=== PATIENT | female | born 1965 | race Caucasian/White ===

== ENCOUNTER → 2020-09-23 07:56 | Outpatient (BNVA) | payer OTHER, MEDICAID, SELFPAY | PROVIDERS: PCP Nurse Practitioner Family; Visit Provider Psychiatry & Neurology Neurology | DX: M79.622 Pain in left upper arm (principal); G56.22 Lesion of ulnar nerve, left upper limb | CPT/HCPCS: 95886; 95908 ==

== ENCOUNTER → 2020-10-18 13:59 | Outpatient (BNVA) | payer OTHER, MEDICAID, SELFPAY | PROVIDERS: PCP Nurse Practitioner Family; Referring Provider Family Medicine; Visit Provider Orthopaedic Surgery | DX: M25.512 Pain in left shoulder (principal) | CPT/HCPCS: 73030 ==

== ENCOUNTER 2022-07-28 14:48 | Outpatient (CLI) | payer OTHER, MEDICAID, SELFPAY ==
--- NOTE | 2022-07-28 14:57 | MM_ITS ---
WS: [id number] BILATERAL 3D TOMOSYNTHESIS DIGITAL DIAGNOSTIC MAMMOGRAPHY WITH CAD CLINICAL INFORMATION: RIGHTBREASTLUMP HISTORY: RIGHT breast lump COMPARISON: None. TECHNIQUE: Bilateral CC, MLO, and ML views. FINDINGS: Scattered fibroglandular densities bilaterally. Spiculated nodular focal asymmetric density approxima tely 12:00 position RIGHT breast in the area of palpable abnormality. This measures approximately 1.2 x 1.0 CM. Surrounding spiculated margins suspicious for local invasion extends out circumferentially approximately 2.5 cm from the central spiculated lesion. Ultrasound described below. LEFT breast is unremarkable. ULTRASOUND BREAST RIGHT TECHNIQUE: Ultrasound right breast focused area of concern. CLINICAL INFORMATION: RIGHTBREASTLUMP FINDINGS: Ultrasound RIGHT breast 12:00 position 5 cm from the nipple. This is in the area of palpable abnormal ity. There is an ill-defined densely shadowing hypoechoic mass measuring approximately 1.1 x 1.1 x 0. 8 cm. Findings are highly suspicious for neoplasm and recommend further evaluation with ultrasound-gu ided biopsy. MM/[place] [id number] IMPRESSION: BI-RADS: 5-Highly Suggestive of Malignancy FOLLOW UP: US Guided Biopsy Recommended
--- NOTE | 2022-07-28 15:31 | US_ITS ---
WS: [id number] BILATERAL 3D TOMOSYNTHESIS DIGITAL DIAGNOSTIC MAMMOGRAPHY WITH CAD CLINICAL INFORMATION: RIGHTBREASTLUMP HISTORY: RIGHT breast lump COMPARISON: None. TECHNIQUE: Bilateral CC, MLO, and ML views. FINDINGS: Scattered fibroglandular densities bilaterally. Spiculated nodular focal asymmetric density approxima tely 12:00 position RIGHT breast in the area of palpable abnormality. This measures approximately 1.2 x 1.0 CM. Surrounding spiculated margins suspicious for local invasion extends out circumferentially approximately 2.5 cm from the central spiculated lesion. Ultrasound described below. LEFT breast is unremarkable. ULTRASOUND BREAST RIGHT TECHNIQUE: Ultrasound right breast focused area of concern. CLINICAL INFORMATION: RIGHTBREASTLUMP FINDINGS: Ultrasound RIGHT breast 12:00 position 5 cm from the nipple. This is in the area of palpable abnormal ity. There is an ill-defined densely shadowing hypoechoic mass measuring approximately 1.1 x 1.1 x 0. 8 cm. Findings are highly suspicious for neoplasm and recommend further evaluation with ultrasound-gu ided biopsy. US/US breast RT limited* [id number] IMPRESSION: BI-RADS: 5-Highly Suggestive of Malignancy FOLLOW UP: US Guided Biopsy Recommended
== END 2022-07-28 14:49 | disposition home or self-care (01) ==
PROVIDERS: PCP Nurse Practitioner Family; Visit Provider Nurse Practitioner Family
DX: Z12.31 Encounter for screening mammogram for malignant neoplasm of breast (principal)
CPT/HCPCS: 76642; 77062; G0279

== ENCOUNTER 2022-08-25 08:09 | Outpatient (CLI) | payer OTHER, MEDICAID, SELFPAY ==
--- NOTE | 2022-08-25 08:21 | US_ITS ---
WS: [id number] ULTRASOUND-GUIDED RIGHT BREAST BIOPSY CLINICAL INFORMATION: ABNORMAL MAMMOGRAM OF R BREAST COMPARISON: July 28, 2022 FINDINGS: The procedure including risks, benefits, and complications were discussed with the patient who agreed to proceed. Using sterile technique patient was prepped and draped in the usual sterile fashion. Aft er 1% lidocaine utilizing real-time ultrasound guidance 5 14-gauge cores were obtained of the RIGHT b reast lesion at the 12 o'clock position 5 cm from the nipple. Subsequently a titanium clip was placed in the biopsy cavity. No immediate complications. PATHOLOGY DEMONSTRATES A. 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 - Ramirez Mathis grade 3 (score 8). - Breast prognostic profile has been performed and will be reported separately. US/[place] [id number] IMPRESSION: 1. Uncomplicated ultrasound-guided RIGHT breast biopsy. 2. The pathology demonstrates INVASIVE CARCINOMA with mixed Ductal and lobular features 3. Breast cancer prognostic profile pending. BI-RADS: 6-Known Biopsy-Proven Malignancy FOLLOW UP: Surgical Biopsy Recommended RECOMMEND BREAST SURGERY CONSULTATION
[2022-08-31 09:55] LABS: Breast Profile ER,PR,HER2,Ki-6 See Report
== END 2022-08-25 08:10 | disposition home or self-care (01) ==
LOC: RAD 08:11
PROVIDERS: PCP Nurse Practitioner Family; Visit Provider Nurse Practitioner Family
DX: C50.811 Malignant neoplasm of overlapping sites of right female breast (principal)
CPT/HCPCS: 19083; 88305; 88361; 88374

== ENCOUNTER 2022-09-14 08:02 | Oncology outpatient (recurring) (ONCR) | payer OTHER, MEDICAID, SELFPAY | END 2022-10-08 23:59 | disposition home or self-care (01) | LOC: ONCMED 08:02 | PROVIDERS: PCP Nurse Practitioner Family; Visit Provider Internal Medicine Hematology & Oncology | DX: Z53.9 Procedure and treatment not carried out, unspecified reason (principal) ==

== ENCOUNTER 2023-02-03 09:30 | Outpatient (CLI) | payer OTHER, MEDICAID, SELFPAY ==
--- NOTE | 2023-02-03 09:30 | PETR_ITS ---
PROCEDURE INFORMATION: Exam: PET/CT Skull Base to Mid-thigh Exam date and time: 02/03/2023 10:06 AM Age: 57 years old Clinical indication: Right breast cancer diagnosed in July 2022. Initial oncological staging assessment; Right mastectomy; LABS AND CLINICAL REPORTS: Glucose: 114 mg/dl Treatment strategy for malignancy (PET staging): Initial Staging (PI) TECHNIQUE: Imaging protocol: Following at least four-hour fasting and following the injection of radiopharmaceutical, low dose CT images were obtained. Then, PET images were obtained. Attenuation corrected images were constructed using the CT scan. Fused images of PET and CT were reviewed. The standardized uptake values (SUV) reported below are maximum values within a region of interest, expressed in gm/ml. Exam includes orbital meatal line to mid-thigh. Radiopharmaceutical: 14.85 mCi F-18 FDG (Fluorodeoxyglucose), IV. Time of imaging post radiopharmaceutical administration: 60.8 minutes. Injection site: Left hand. COMPARISON: [place] [id number] 08/25/2022 8:59 AM FINDINGS: Brain: Visualized brain has normal physiologic uptake. Pharynx: No abnormal uptake. Larynx: No abnormal uptake. Lungs, pleura and trachea: No abnormal uptake. Heart: Normal physiologic uptake. Mediastinal space: No abnormal uptake. Liver: No abnormal uptake. Gallbladder and bile ducts: No abnormal uptake. Pancreas: No abnormal uptake. Spleen: No abnormal uptake. Mild splenomegaly, 15.4 cm (measured on sagittal images) Adrenal glands: No abnormal uptake. Kidneys and ureters: Normal physiologic uptake. Stomach and bowel: No abnormal uptake. Intraperitoneal and retroperitoneal spaces: No significant peritoneal free fluid. No free peritoneal air. Reproductive: Post hysterectomy. No ovarian or adnexal pathology. Vasculature: There is moderate calcific atherosclerosis of the abdominal aorta and iliac arteries. There is no aneurysm. Lymph nodes: See below. No FDG avid lymph nodes in the neck, chest, abdomen or pelvis. Bones/joints: No metabolically active areas. Soft tissues: Expected postoperative changes at the right mastectomy site. No evidence of locally recurrent breast cancer. A postoperative subcutaneous fluid collection has a density of 9 HU, which is consistent with a seroma. It is 13.4 x 2.1 x 9.2 cm. An FDG avid ovoid subcutaneous soft tissue lesion in the left groin is 2.0 x 1.4 x 2.0 cm (image 147). Its max SUV is 5.6. It is nonspecific. Central hypodensity suggests that it may be an abscess. Malignant lymphadenopathy is not excluded. PET/PET [facility] INITIAL [id number] IMPRESSION: 1. Recent right mastectomy with postoperative seroma. No local recurrence. 2. An FDG avid ovoid subcutaneous soft tissue lesion in the left groin is 2.0 x 1.4 x 2.0 cm. Its max SUV is 5.6. It is nonspecific and compatible with either infection or lymphadenopathy. 3. No lymphadenopathy in the neck, chest abdomen or pelvis. 4. Mild splenomegaly.
== END 2023-02-03 09:31 | disposition home or self-care (01) ==
LOC: RAD 02-05 05:45
PROVIDERS: PCP Nurse Practitioner Family; Visit Provider Internal Medicine Medical Oncology
DX: C50.911 Malignant neoplasm of unspecified site of right female breast (principal); Z90.11 Acquired absence of right breast and nipple; M96.843 Postprocedural seroma of a musculoskeletal structure following other procedure; Y83.8 Other surgical procedures as the cause of abnormal reaction of the patient, or of later complication, without mention of misadventure at the time of the procedure; R19.04 Left lower quadrant abdominal swelling, mass and lump; R16.1 Splenomegaly, not elsewhere classified
CPT/HCPCS: 78815; A9552

== ENCOUNTER 2023-02-08 10:01 | Oncology outpatient (recurring) (ONCR) | payer OTHER, MEDICAID, SELFPAY ==
[2023-01-18 10:39] LABS: Hematocrit 54.4 % (37.0-47.0); Hemoglobin 18.4 g/dL (11.5-15.3); Mean Corpuscular HGB Conc 33.8 g/dL (30.0-36.0); Mean Corpuscular Hemoglobin 29.7 pg (28.0-34.0); Mean Corpuscular Volume 87.9 fl (81-99); Mean Platelet Volume 10.1 fL (7.4-10.4); Platelet Count 238 10^3/cmm (130-400); Red Blood Count 6.19 10^6/uL (4.1-5.3); Red Cell Distribution Width 13.9 % (12.1-15.1); White Blood Count 15.5 10^3/uL (4.0-10.0)
[2023-01-18 11:04] LABS: Absolute Eosinophils 0.3 10^3/cmm (0.0-0.7); Absolute Segmented Neutrophil 7.9 10/cmm (1.6-7.1); Alanine Aminotransferase 19 U/L (0-33); Albumin Level 4.5 g/dL (3.5-5.2); Alkaline Phosphatase 80 U/L (35-105); Anion Gap 15.1 (5-19); Aspartate Amino Transferase 19 U/L (0-32); Blood Urea Nitrogen 12 mg/dL (6-20); Calcium 9.7 mg/dL (8.5-10.5); Carbon Dioxide 27 mmol/L (22-29); Chloride 101 mmol/L (98-107); Eosinophils 2 %; Estradiol 11.7 pg/mL; Follicle Stimulating Hormone 41.6 mIU/mL; Globulin 3.3 g/dL (1.3-4.6); Glomerular Filtration Rate 86.6 mL/min (90-130); Glucose 157 mg/dL (65-115); Luteinizing Hormone 31.1 mIU/mL (0.5-41.7); Lymphocytes 31 %; Lymphocytes Absolute 6.5 10^3/cmm (1.2-3.4); Monocytes Absolute 0.8 10^3/cmm (0.1-0.6); Osmolality Calculated 291 mOsm/kg (285-295); Potassium 4.1 mmol/L (3.5-5.1); Segmented Neutrophils 51 %; Slide Review Slide Review Perform; Sodium 139 mmol/L (136-145); Total Bilirubin 0.5 mg/dL (0.15-1.2); Total Cells Counted 100 (0-100); Total Protein 7.8 g/dL (6.6-8.7)
[2023-01-18 11:05] LABS: Absolute Neutrophil 7.9 10^3/cmm (1.4-6.5); Platelet Estimate Normal (Normal)
== END 2023-02-08 23:59 | disposition home or self-care (01) ==
PROVIDERS: PCP Nurse Practitioner Family; Visit Provider Internal Medicine Medical Oncology
DX: C50.911 Malignant neoplasm of unspecified site of right female breast (principal)
CPT/HCPCS: 36415; 80053; 82670; 83001; 83002; 85007; 85025

== ENCOUNTER 2023-03-02 14:23 | Outpatient (CLI) | payer OTHER, MEDICAID, SELFPAY ==
--- NOTE | 2023-03-02 14:30 | XR_ITS ---
WS: [id number] SCREENING DEXA SCAN RECCY CLINICAL INFORMATION: Breast cancer COMPARISON: None. FINDINGS: The L1-L4 bone mineral density measures 1.229 g/cm2. This corresponds to a T score score of 0.4 and Z score of 1.0. Left femoral neck bone mineral density measures 0.818 g/cm2. This corresponds to a T score of -1.5 an d Z score of -1.0. Right femoral neck bone mineral density measures 0.885 g/cm2. This corresponds to a T score -1.0of an d Z score of -0.5. Mean femoral neck bone mineral density measures 0.852 g/cm2. This corresponds to a T score of -1.2 an d Z score of -0.8. IMPRESSION: Normal bone mineralization lumbar spine. Osteopenia femoral necks. Patient's FRAX calculated 10 year probability for major osteoporotic fracture is 8.0% and osteoporoti c hip fracture is 1.4%.
== END 2023-03-02 14:24 | disposition home or self-care (01) ==
PROVIDERS: PCP Nurse Practitioner Family; Visit Provider Internal Medicine Medical Oncology
DX: Z13.820 Encounter for screening for osteoporosis (principal); C50.911 Malignant neoplasm of unspecified site of right female breast; M85.88 Other specified disorders of bone density and structure, other site
CPT/HCPCS: 77080

== ENCOUNTER 2023-03-09 09:11 | Oncology outpatient (recurring) (ONCR) | payer OTHER, MEDICAID, SELFPAY ==
--- NOTE | 2023-02-21 14:37 | N.ONRAD NP_ITS ---
Radiation Oncology New Patient Visit Patient: Nini Mccrary MR#: [id number] : 1965 Age: 57 Sex: Female Dictated by: Bean Dolan Date of Service: 02/21/2023 Referring Physician(s) : Diagnosis: Radiotherapy to date: Summary > No prior radiation therapy. Chief Complaint / History of Present Illness: Ms. Nini Mccrary, is a 57-year-old female with a strong family history of breast cancer, in her mother, at her age 57, maternal aunt and grandmother with breast cancer and ovarian cancer. As per patient, she has 'lumpy' breasts, years ago, she noted lumps in her right breast, at that time, she was evaluated by her PMD and was told, lumps may be related to her hormonal changes during her menstrual period as they were 'come and go' type and they did dissolve. And in June 2022, as per patient she again noted lump in her right breast and thought could be due to hormonal changes but this time lump in her right breast lump did not resolve, she got concerned and went to see her PMD, Bilateral mammogram was ordered and was done on July 28, 2022 which showed 1.1 x 1.1 x 0.8 cm hypoechoic mass at 12 o'clock position in her right breast, highly suspicious for neoplasm and on August 25, 2022, she underwent ultrasound-guided biopsy of right breast mass which confirmed invasive carcinoma with mixed ductal and lobular features, ER 95% positive MA 90% positive, HER2/fidencio negative. Left breast was unremarkable. 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 11/20/2022, Oncotype DX 13 01/05/2023: Underwent right mastectomy with excision of the deep axillary lymph nodes by Dr. Vinnie Stone at [facility]. Invasive ductal carcinoma, grade 2, shows extensive and possible multifocal involvement of the breast, grossly identified at 12 o'clock position, 5 cm from the nipple, 3.2 cm in the greatest dimension. Histologically similar tumor extensively involving the inferior breast, spanning an area measuring at least 10 cm. Extensive lymphatic invasion present, ER positive, MA positive, HER2 by IHC 2+, HER2 by FISH negative. 12 out of 16 lymph nodes positive with macro metastasis. Distance from invasive carcinoma to the closest margin greater than 1 cm, extranodal extension present, 2 mm or less. Stage pT3 pN3a, MX- Stage III. 01/16/2023: PET CT scan shows right mastectomy with postoperative seroma. No local recurrence. FDG avid ovoid subcutaneous soft tissue lesion in the left groin 2 x 1.4 x 2 cm with SUV of 5.6. Nonspecific and compatible with either infection or lymphadenopathy on the PET. Mild splenomegaly also noted. Current Medications: diabetic Shoes with 3 pairs of Inserts As directed by CHERY&O] duloxetine (Cymbalta) 30 mg PO DAILY empagliflozin (Jardiance) 25 mg PO DAILY fluticasone propion-salmeterol 250-50 mcg/dose (Advair Diskus) 1 inh inhalation Q12H PRN levothyroxine 100 mcg PO DAILY sitagliptin phosphate (Januvia) 100 mg PO DAILY Allergies: Albuterol Medical History: No history of collagen vascular disease. No previous radiation therapy. Surgical History: See history of present illness. Family History: Mother of breast cancer. Grandmother cancer. Father lung disease Social History: Patient is a 1 pack/day smoker and has smoked for 20 years. She drinks occasional alcohol. Current Complaints / Review of Systems: . Patient is recovering from her right mastectomy and lymph node dissection. She has follow-up scheduled with Dr. Stone February 27. Vital Signs: Performed on 02/21/2023 10:30 AM BMI - 28.122 kg/m2 (high), Height - 64.5 in, Weight - 166.4 lbs, Temperature - 98.2 f, Pulse - 84 /min, Respiration - 16 /min, O2 Sat - 96 %, Pain - 4, Fatigue - 0 and BP - 114/ 74 mm(hg). Physical Exam: Alert and oriented female appearing her stated age. No alopecia. PERRL, EOMI. Cranial nerves II through XII grossly intact. Tongue and uvula midline and mobile. Speech intact. No cervical, supraclavicular or axillar adenopathy. Lungs clear to auscultation bilaterally. Cardiovascular Ga reveals regular rhythm. Right breast is surgically absent. Surgical incision of the right chest wall and axilla are healing well without signs of infection or drainage. Left breast is intact. Abdomen soft nontender. Bowel sounds present normal active. Pelvic and rectal examinations deferred. No upper or lower extremity edema. Motor symmetrical to the upper and lower extremities. Patient amatory without assistance. Performance Status: ECOG 1 Pathology: Invasive ductal carcinoma, grade 2 with extensive and possible multifocal involvement of the breast grossly identified at the 12 o'clock position, 5 cm from the nipple, 3.2 cm in greatest dimension in the right breast. Histologically similar tumor was noted extensively involving the inferior breast spanning an area measuring at least 10 cm. Extensive lymphatic invasion was present, ER positive, MA positive, HER2 by IHC 2+, HER2 by FISH negative. 12 out of 16 lymph nodes were positive with macrometastases. Distance from invasive carcinoma to the closest margin greater than 1 cm, extranodal extension present, 2 mm or less. Lab: Imaging: See HPI Impression: Nini Mccrary is a 57-year-old female with a strong history of breast cancer. She is status post right mastectomy with stage III, pT3 pN3a, MX invasive ductal carcinoma, grade 2 with extensive multifocal involvement of the breast, extensive lymphatic invasion, ER positive, MA positive, HER2 by IHC 2+, HER2 by FISH negative. 12 of 16 lymph nodes were positive with macrometastases. Distance from invasive carcinoma to closest margin greater than 1 cm, extranodal extension present, 2 mm or less. Patient is refusing any chemotherapy. Evaluation indicates a recommendation for aromatase inhibitors or hormonal therapy. The patient indicates she is considering that option. She also has osteoporosis and may benefit from bone strengthening agents. Plan: With her locally advanced carcinoma of the right breast and 12 of 16 lymph nodes positive with macrometastases she is a candidate for postoperative radiation therapy to the right chest wall and supraclavicular area in the hope of maintaining local control. The potential risks, benefits and side effects of external beam radiation therapy were reviewed with the patient and her daughter was also present. She is aware that the risk of pathologic rib fractures is relatively low even with her history of osteoporosis. Additionally she is aware of the side effects of possible fatigue, skin irritation, and lymphedema. Patient has a follow-up appointment with Dr. Vinnie Stone at [facility] in [place] on 02/27/2023 to be cleared for radiation therapy if indicated at that time. Patient will be contacted by phone to arrange for treatment planning CT scan. Recommendation is for postoperative radiation therapy to the chest wall and supraclavicular area at 180 cGy per fraction over 28 fractions to a dose of 50.4 Sheikh followed by a boost to the mastectomy scar at 200 cGy per fraction over 5 additional fractions for a total dose of 60.4 Sheikh. Patient will also need follow-up with medical oncology to arrange for aromatase inhibitor or hormonal therapy and for discussion of possible treatment for her osteoporosis. Signed by: 02/21/2023 2:36:15 PM <<Signature on File>> Time spent with patient: 60 minutes CPT Code: CPT Code:
--- NOTE | 2023-03-07 16:24 | ONCRAD TMN_ITS ---
Radiation Oncology Weekly Treatment Management Patient: Maryuri Mccrary MR#: [id number] : 1965> Attending Physician: Kilo Guzman Date of Service: 03/07/2023 Referring Physician(s) : Diagnosis: C50.911 - Malignant neoplasm of unspecified site of right female breast, Diagnosed 03/01/2023 (Active) Radiotherapy to date: Course: ChestWall 2022, Treatment Site: Rt ChestWall, Ref. ID: [id number], Energy: 15X, Dose/Fx (cGy): 200, #Fx: , Dose Correction (cGy): 0, Total Dose (cGy): 200, Start Date: 03/07/2023, Elapsed Days: 0 ChestWall 2022, Treatment Site: [facility], Ref. ID: [id number], Energy: 15X, Dose/Fx (cGy): 200, #Fx: , Dose Correction (cGy): 0, Total Dose (cGy): 200, Start Date: 03/07/2023, Elapsed Days: 0 Reason for visit: The patient is being seen today as part of their regularly scheduled weekly on treatment visits to assess for acute toxicities from radiotherapy. Review of Systems: First day of treatment. Smoking ??? to 1 ppd. Vital Signs: Performed on 03/07/2023 1:37 PM BMI - 27.547 kg/m2 (high), Height - 64.5 in, Weight - 163 lbs, Temperature - 97.4 f, Pulse - 90 /min, Respiration - 18 /min, O2 Sat - 95 % (low), Pain - 0, Fatigue - 0 and BP - 123/ 72 mm(hg). Physical Exam: Imaging: Radiation therapy imaging related to accurate target localization (i.e. KV, MV and CBCT) was reviewed. Appropriate changes, if any, were made to ensure treatment accuracy. Plan: Continue as planned. Discussed smoking. No interest in cessation. Signed by: Kilo Guzman 03/07/2023 4:23:00 PM Telemedicine Consent Patient seen today via Telemedicine by agreement and consent of patient. Telemedicine technology used during the visit include audio and, as available, review of images. This patient encounter is appropriate and reasonable under the circumstances given the patient???s particular presentation at this time. The patient has been advised of the potential risks and limitations of this mode of treatment (including but not limited to the absence of in-person examination) and has agreed to be treated in a remote fashion in spite of them. Any and all of the patient???s/patient???s family???s questions on this issue have been answered and I have made no promises or guarantees to the patient. The patient has also been advised to contact this office for worsening conditions or problems, and seek emergency medical treatment and/or call 911 if the patient deems either necessary.
== END 2023-03-10 23:59 | disposition home or self-care (01) ==
PROVIDERS: PCP Nurse Practitioner Family; Visit Provider Radiology Radiation Oncology
DX: Z51.0 Encounter for antineoplastic radiation therapy (principal); C50.811 Malignant neoplasm of overlapping sites of right female breast; Z17.0 Estrogen receptor positive status [ER+]
CPT/HCPCS: 36415; 77290; 77295; 77300; 77334; 77387; 77412; 82306

== ENCOUNTER 2023-04-05 11:57 | Oncology outpatient (recurring) (ONCR) | payer OTHER, MEDICAID, SELFPAY ==
--- NOTE | 2023-03-12 18:02 | ONCRAD TMN_ITS ---
Radiation Oncology Weekly Treatment Management Patient: Demetra Terrazas MR#: [id number] : 1965 Attending Physician: Kilo Guzman Date of Service: 03/12/2023 Referring Physician(s) : Diagnosis: C50.911 - Malignant neoplasm of unspecified site of right female breast, Diagnosed 03/01/2023 (Active) Radiotherapy to date: Course: ChestWall 2022, Treatment Site: Rt ChestWall, Ref. ID: [id number], Energy: 15X, Dose/Fx (cGy): 200, #Fx: 4 / 25, Dose Correction (cGy): 0, Total Dose (cGy): 800, Start Date: 03/07/2023, Elapsed Days: 5 Course: ChestWall 2022, Treatment Site: [facility], Ref. ID: [id number], Energy: 15X, Dose/Fx (cGy): 200, #Fx: 4 / 25, Dose Correction (cGy): 0, Total Dose (cGy): 800, Start Date: 03/07/2023, Elapsed Days: 5 Reason for visit: The patient is being seen today as part of their regularly scheduled weekly on treatment visits to assess for acute toxicities from radiotherapy. Review of Systems: No chest wall sxs. Active at night as she is nocturnal and sleeps during the day. Still smoking 1/2 to 1 ppd. She has Vit E , diabetic skin care and Aquaphor. Vital Signs: Performed on 03/12/2023 1:59 PM BMI - 27.547 kg/m2 (high), Height - 64.5 in, Weight - 163 lbs, Temperature - 97 f, Pulse - 93 /min, Respiration - 18 /min, O2 Sat - 93 % (low), Pain - 0, Fatigue - 0 and BP - 144/ 88 mm(hg)(high/). Physical Exam: Chest wall clear. Imaging: Radiation therapy imaging related to accurate target localization (i.e. KV, MV and CBCT) was reviewed. Appropriate changes, if any, were made to ensure treatment accuracy. Plan: Good tolerance of treatment. Continue as planned. I discussed smoking cessaion. Signed by: Kilo Guzman 03/12/2023 6:01:42 PM
--- NOTE | 2023-03-20 15:46 | ONCRAD TMN_ITS ---
Radiation Oncology Weekly Treatment Management Patient: Nini Mccrary MR#: [id number] : 1965 Attending Physician: Kilo Guzman Date of Service: 03/20/2023 Referring Physician(s) : Diagnosis: C50.911 - Malignant neoplasm of unspecified site of right female breast, Diagnosed 03/01/2023 (Active) Radiotherapy to date: Course: ChestWall 2022, Treatment Site: Rt ChestWall, Ref. ID: [id number], Energy: 15X, Dose/Fx (cGy): 200, #Fx: 10 25, Dose Correction (cGy): 0, Total Dose (cGy): 2,000, Start Date: 03/07/2023, Elapsed Days: 13 ChestWall 2022, Treatment Site: [facility], Ref. ID: [id number], Energy: 15X, Dose/Fx (cGy): 200, #Fx: 25, Dose Correction (cGy): 0, Total Dose (cGy): 2,000, Start Date: 03/07/2023, Elapsed Days: 13 Reason for visit: The patient is being seen today as part of their regularly scheduled weekly on treatment visits to assess for acute toxicities from radiotherapy. Review of Systems: No issues. Eating ok. Energy ok. Still smoking. Vital Signs: Performed on 03/20/2023 1:11 PM BMI - 28.02 kg/m2 (high), Height - 64.5 in, Weight - 165.8 lbs, Temperature - 97.5 f, Pulse - 86 /min, Respiration - 16 /min, O2 Sat - 97 %, Pain - 0, Fatigue - 0 and BP - 108/ 61 mm(hg)(/low). Physical Exam: Imaging: Radiation therapy imaging related to accurate target localization (i.e. KV, MV and CBCT) was reviewed. Appropriate changes, if any, were made to ensure treatment accuracy. Plan: Good tolerance of treatment. She will add Aquaphor. Discussed smoking and need for cessation. Signed by: Kilo Guzman 03/20/2023 3:46:13 PM Telemedicine Consent Patient seen today via Telemedicine by agreement and consent of patient. Telemedicine technology used during the visit include audio and, as available, review of images. This patient encounter is appropriate and reasonable under the circumstances given the patient???s particular presentation at this time. The patient has been advised of the potential risks and limitations of this mode of treatment (including but not limited to the absence of in-person examination) and has agreed to be treated in a remote fashion in spite of them. Any and all of the patient???s/patient???s family???s questions on this issue have been answered and I have made no promises or guarantees to the patient. The patient has also been advised to contact this office for worsening conditions or problems, and seek emergency medical treatment and/or call 911 if the patient deems either necessary.
--- NOTE | 2023-03-28 13:18 | ONCRAD TMN_ITS ---
Radiation Oncology Weekly Treatment Management Patient: Nini Mccrary MR#: [id number] : 1965 Attending Physician: Kilo Guzman Date of Service: 03/27/2023 Referring Physician(s) : Diagnosis: C50.911 - Malignant neoplasm of unspecified site of right female breast, Diagnosed 03/01/2023 (Active) Radiotherapy to date: Course: ChestWall 2022, Treatment Site: Rt ChestWall, Ref. ID: [id number], Energy: 15X, Dose/Fx (cGy): 200, #Fx: 15 / 25, Dose Correction (cGy): 0, Total Dose (cGy): 3,000, Start Date: 03/07/2023, Elapsed Days: 20 Course: ChestWall 2022, Treatment Site: [facility], Ref. ID: [id number], Energy: 15X, Dose/Fx (cGy): 200, #Fx: 15 / 25, Dose Correction (cGy): 0, Total Dose (cGy): 3,000, Start Date: 03/07/2023, Elapsed Days: 20 Reason for visit: The patient is being seen today as part of their regularly scheduled weekly on treatment visits to assess for acute toxicities from radiotherapy. Review of Systems: Doing well. No symptoms. Energy ok, Eating ok. Still smoking with no plans to quit. Some arm pain treated with motrin and now better.Using Aquaphor. Vital Signs: Performed on 03/27/2023 1:28 PM BMI - 28.122 kg/m2 (high), Height - 64.5 in, Weight - 166.4 lbs, Temperature - 97.2 f, Pulse - 86 /min, Respiration - 16 /min, O2 Sat - 96 %, Pain - 0, Fatigue - 2 and BP - 138/ 79 mm(hg). Physical Exam: Imaging: Radiation therapy imaging related to accurate target localization (i.e. KV, MV and CBCT) was reviewed. Appropriate changes, if any, were made to ensure treatment accuracy. Plan: Good tolerance of treatment. Continue as planned. Signed by: Kilo Guzman 03/28/2023 1:17:36 PM Telemedicine Consent Patient seen today via Telemedicine by agreement and consent of patient. Telemedicine technology used during the visit include audio and, as available, review of images. This patient encounter is appropriate and reasonable under the circumstances given the patient???s particular presentation at this time. The patient has been advised of the potential risks and limitations of this mode of treatment (including but not limited to the absence of in-person examination) and has agreed to be treated in a remote fashion in spite of them. Any and all of the patient???s/patient???s family???s questions on this issue have been answered and I have made no promises or guarantees to the patient. The patient has also been advised to contact this office for worsening conditions or problems, and seek emergency medical treatment and/or call 911 if the patient deems either necessary.
--- NOTE | 2023-04-03 14:13 | ONCRAD TMN_ITS ---
Radiation Oncology Weekly Treatment Management Patient: Demetra Terrazas MR#: [id number] : 1965 Attending Physician: Bean Dolan Date of Service: 04/03/2023 Referring Physician(s) : Diagnosis: C50.911 - Malignant neoplasm of unspecified site of right female breast, Diagnosed 03/01/2023 (Active) Radiotherapy to date: Course: ChestWall 2022, Treatment Site: Rt ChestWall, Ref. ID: [id number], Energy: 15X, Dose/Fx (cGy): 200, #Fx: 20 / 25, Dose Correction (cGy): 0, Total Dose (cGy): 4,000, Start Date: 03/07/2023, Elapsed Days: Course: ChestWall 2022, Treatment Site: [facility], Ref. ID: [id number], Energy: 15X, Dose/Fx (cGy): 200, #Fx: 20 / 25, Dose Correction (cGy): 0, Total Dose (cGy): 4,000, Start Date: 03/07/2023, Elapsed Days: Reason for visit: The patient is being seen today as part of their regularly scheduled weekly on treatment visits to assess for acute toxicities from radiotherapy. Review of Systems: Patient complains of right chest wall skin pain rated 4 out of 10. She is using vitamin E and Aquaphor. She reports that she is sleeping well denies any excessive fatigue. Vital Signs: Performed on 04/03/2023 1:14 PM BMI - 27.547 kg/m2 (high), Height - 64.5 in, Weight - 163.0 lbs, Temperature - 97.1 f, Pulse - 88 /min, Respiration - 18 /min, O2 Sat - 96 %, Pain - 4, Fatigue - 3 and BP - 133/ 79 mm(hg). Physical Exam: Alert and oriented female appearing her stated age. Skin of the right chest wall is erythematous in the treatment field with no moist desquamation. No lymphedema of the right upper extremity or chest wall noted. Patient ambulatory without assistance. Imaging: Radiation therapy imaging related to accurate target localization (i.e. KV, MV and CBCT) was reviewed. Appropriate changes, if any, were made to ensure treatment accuracy. Plan: Bolus will be held today and will be changed to every other day. Plan to continue prescribed treatment otherwise. Signed by: Bean Dolan 04/03/2023 2:12:13 PM
== END 2023-04-05 23:59 | disposition home or self-care (01) ==
PROVIDERS: PCP Nurse Practitioner Family; Visit Provider Radiology Radiation Oncology
DX: Z51.0 Encounter for antineoplastic radiation therapy; C50.811 Malignant neoplasm of overlapping sites of right female breast; Z17.0 Estrogen receptor positive status [ER+]; C77.3 Secondary and unspecified malignant neoplasm of axilla and upper limb lymph nodes; F17.210 Nicotine dependence, cigarettes, uncomplicated
CPT/HCPCS: 77014; 77336; 77387; 77412; 77427; 99024

== ENCOUNTER 2023-04-09 07:03 | Oncology outpatient (recurring) (ONCR) | payer OTHER, MEDICAID, SELFPAY | END 2023-04-10 23:59 | disposition home or self-care (01) | LOC: ONCMED 07:07 | PROVIDERS: PCP Nurse Practitioner Family; Visit Provider Radiology Radiation Oncology | DX: Z53.9 Procedure and treatment not carried out, unspecified reason ==

== ENCOUNTER 2023-05-29 15:30 | Oncology outpatient (recurring) (ONCR) | payer OTHER, MEDICAID, SELFPAY ==
[2023-05-22 12:08] VITALS: BP 132/82; PULSE 85; RESP 16; TEMP 36.8; O2SAT 95
[2023-05-22 12:24] LABS: Basophils # 0.1 10^3/uL (0.0-0.1); Basophils % 0.5 %; Eosinophils # 0.3 10^3/uL (0.0-0.8); Eosinophils % 2.4 %; Hematocrit 50.1 % (36-47); Lymphocytes # 3.4 10^3/uL (0.8-4.8); Lymphocytes % 30.8 %; Mean Corpuscular HGB Conc 35.7 g/dL (30-55); Mean Corpuscular Hemoglobin 30.6 pg (27-33); Mean Corpuscular Volume 85.6 fl (85-98); Mean Platelet Volume 9.6 fL (7.4-10.4); Monocytes # 0.7 10^3/uL (0.2-0.9); Monocytes % 6.6 %; Neutrophils # 6.51 10^3/uL (1.8-7.7); Neutrophils % 59.3 %; Nucleated Red Blood Cells % 0 %; Platelet Count 220 10^3/cmm (157-399); Red Blood Count 5.85 10^6/uL (3.85-5.65); Red Cell Distribution Width 13.3 % (12.1-15.1); White Blood Count 10.98 10^3/uL (3.29-11.43)
[2023-05-22 12:40] LABS: Alanine Aminotransferase 14 U/L (0-33); Albumin Level 4.5 g/dL (3.5-5.2); Alkaline Phosphatase 84 U/L (35-105); Aspartate Amino Transferase 15 U/L (0-32); Blood Urea Nitrogen 10 mg/dL (6-20); Calcium 9.7 mg/dL (8.5-10.5); Carbon Dioxide 24 mmol/L (22-29); Chloride 97 mmol/L (98-107); Glomerular Filtration Rate 86.6 mL/min (90-130); Glucose 207 mg/dL (65-115); Osmolality Calculated 285 mOsm/kg (285-295); Sodium 135 mmol/L (136-145); Total Bilirubin 0.4 mg/dL (0.15-1.2); Total Protein 7.5 g/dL (6.6-8.7)
--- NOTE | 2023-05-22 13:16 | ONCRAD EPV_ITS ---
Radiation Oncology Established Patient Visit Patient: Nini Mccrary [id number] : 1965 Age: 57 Sex: Female Dictated by: Dr. Amanda Jones Date of Service: 05/22/2023 Referring Physician(s) : Diagnosis: C50.911 - Malignant neoplasm of unspecified site of right female breast, Diagnosed 03/01/2023 (Active) Radiotherapy to Date: Course: ChestWall 2022, Treatment Site: Rt ChestWall, Ref. ID: [id number] Energy: 15X, Dose/Fx (cGy): 200, #Fx: , Dose Correction (cGy): 0, Total Dose (cGy): 4,400, Start Date: 03/07/2023, End Date: 04/05/2023, Elapsed Days: 29 ChestWall 2022, Treatment Site: [facility], Ref. ID: [id number], Energy: 15X, Dose/Fx (cGy): 200, #Fx: , Dose Correction (cGy): 0, Total Dose (cGy): 4,400, Start Date: 03/07/2023, End Date: 04/05/2023, Elapsed Days: 29 Current History: Patient was recovered nicely from her treatments. Her only complaint today is that her biceps area and her forearm have become more sore. She otherwise has a good appetite. She is sleeping fairly well. Her energy level is returning Current Medications: DULoxetine HCl, empagliflozin, fluticasone-Salmeterol, levothyroxine Sodium, sITagliptin Phosphate. Allergies: Current Complaints / Review of Systems: . Vital Signs: Performed on 05/22/2023 12:21 PM BMI - 27.446 kg/m2 (high), Height - 64.5 in, Weight - 162.4 lbs, Temperature - 98.3 f, Pulse - 85 /min, Respiration - 16 /min, O2 Sat - 95 % (low), Pain - 0, Fatigue - 0 and BP - 132/ 82 mm(hg). Physical Exam: General: Alert and oriented x 3. No acute distress. HEENT: Normocephalic, atraumatic. Extraocular Movements Intact: Pupils Equal, Round, Reactive to Light: Sclerae anicteric. Chest wall: Examination of the right chest wall reveals the skin to be hyperpigmented and dry. There is no areas of moist desquamation or nodules.. LUNGS respiratory rate is regular nonlabored. HEART: Regular rate and rhythm. MUSCULOSKELETAL: No gross musculoskeletal abnormalities noted. ABDOMEN: Soft, nontender, nondistended EXTREMITIES: Examination of the right arm reveals that the hand is just mildly puffy. It is notable in that she just does not have as many wrinkles on that hand. NEUROLOGIC: Alert and oriented x 3. Gait and speech within normal limits. Performance Status: 100 Lab: None pending. Pathology: Primary, c50.911 - malignant neoplasm of unspecified site of right female breast, Diagnosed 03/01/2023 (active). Imaging: See HPI Impression: Right-sided breast cancer status post chest wall radiation Plan: At this time she is recovering nicely. She was scheduled to visit with medical oncology but she has declined that intervention. She says she is not interested in taking pills or chemotherapy. She was post to see somebody for physical therapy at [facility] but she is not heard from them and she is not interested in meeting with them. I did review with her how to do her own manual lymphatic drainage for her arm. I reviewed with her that her tenderness in her arm is most likely from trace edema. I also reviewed with her what to watch for in terms of recurrence across the chest wall. At this point she just like to take some time to recover. She has agreed to return in 6 months for evaluation or she will call if any problems should arise in the interim Signed by: 05/22/2023 1:15:02 PM <<Signature on File>> Time spent with patient: CPT Code: CPT Code:
[2023-05-29 16:19] LABS: 25 Hydroxy Vitamin D 48 ng/mL (30-100)
== END 2023-06-10 23:59 | disposition home or self-care (01) ==
PROVIDERS: Internal Medicine Medical Oncology; PCP Nurse Practitioner Family; Visit Provider Nurse Practitioner Family
DX: C50.811 Malignant neoplasm of overlapping sites of right female breast; Z17.0 Estrogen receptor positive status [ER+]; Z79.899 Other long term (current) drug therapy; Z53.9 Procedure and treatment not carried out, unspecified reason
CPT/HCPCS: 36415; 80053; 82306; 85025; 99024

== ENCOUNTER 2023-08-09 13:23 | Oncology outpatient (recurring) (ONCR) | payer OTHER, MEDICAID, SELFPAY ==
--- NOTE | 2023-08-09 14:25 | ONCRAD EPV_ITS ---
Radiation Oncology Established Patient Visit Patient: Demetra Terrazas [id number] : 1965> Age: 58> Sex: Female> Dictated by: Dr. Amanda Jones Date of Service: 08/09/2023 Referring Physician(s) : Shannon Perez nurse practitioner Diagnosis: C50.911 - Malignant neoplasm of unspecified site of right female breast, Diagnosed 03/01/2023 (Active) Radiotherapy to Date: Course: ChestWall 2022, Treatment Site: Rt ChestWall, Ref. ID: [id number], Energy: 15X, Dose/Fx (cGy): 200, #Fx: / 25, Dose Correction (cGy): 0, Total Dose Delivered (cGy): 4,400, Start Date: 03/07/2023, End Date: 04/05/2023, Elapsed Days: 29 Treatment Site: SCLV, Ref. ID: [id number], Energy: 15X, Dose/Fx (cGy): 200, #Fx: , Dose Correction (cGy): 0, Total Dose Delivered (cGy): 4,400, Start Date: 03/07/2023, End Date: 04/05/2023, Elapsed Days: 29 Current History: Patient had called earlier with difficulty with her right shoulder. She had had decrease in range of motion and it was progressively getting worse. She thought it may be due to her cancer and the fact that she had a mastectomy on the right side. She is here today to review her current symptoms. Current Medications: DULoxetine HCl, empagliflozin, fluticasone-Salmeterol, levothyroxine Sodium, sITagliptin Phosphate. Allergies: Current Complaints / Review of Systems: . Vital Signs: Performed on 08/09/2023 1:55 PM BMI - 27.547 kg/m2 (high), Height - 64.5 in, Weight - 163 lbs, Temperature - 97.3 f, Pulse - 83 /min, Respiration - 18 /min, O2 Sat - 98 %, Pain - 8, Fatigue - 0 and BP - 139/ 74 mm(hg). Physical Exam: General: Patient is in no apparent distress. She is by herself today.. HEENT: Normocephalic, atraumatic. Extraocular Movements Intact: Pupils Equal, Round, Reactive to Light: Sclerae anicteric. .. NECK: Supple without supraclavicular or jugular lymphadenopathy. LUNGS: Respiratory rate regular nonlabored. HEART: Regular rate and rhythm,. MUSCULOSKELETAL: No tenderness or percussion pain over the axial skeleton, scapulae or right shoulder ABDOMEN: Soft, nontender, nondistended without masses or organomegalyEXTREMITIES: No peripheral edema is identified. Limited motor and sensory examination are grossly intact and symmetric bilaterally. Thorax: The right chest wall is without nodules lesions or masses. NEUROLOGIC: Alert and orient x 3. Gait and speech within normal limits Right arm and shoulder: She is wearing a brace on her right forearm secondary to her carpal tunnel. On exam she does not appear to have any swelling or discoloration of the right shoulder joint. She is able to lift it anteriorly but is unable to lift more than 45 degrees laterally.. Performance Status: 90 Lab: None pending. Pathology: Primary, c50.911 - malignant neoplasm of unspecified site of right female breast, Diagnosed 03/01/2023 (active) . 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 I have recommended that since she is beginning to lose her range of motion and obviously has significant pain that we proceed with evaluation which would include an MRI of her shoulder. She is getting to the point where she is not able to push the cart at [facility]. She has difficulty feeding her animals. She does not appear to have any lymphedema but definitely has range of motion issues. Will get her set up to have her MRI and then I will call her with those results and hopefully be able to refer her to the appropriate person. If for some reason there is malignancy found in this area I will see her back in person to go over those results. Signed by: 08/09/2023 2:23:18 PM <<Signature on File>> Time spent with patient:30 CPT Code: CPT Code:
== END 2023-08-09 23:59 | disposition home or self-care (01) ==
LOC: ONCMED 13:24
PROVIDERS: PCP Nurse Practitioner Family; Visit Provider Radiology Radiation Oncology
DX: C50.811 Malignant neoplasm of overlapping sites of right female breast (principal); Z17.0 Estrogen receptor positive status [ER+]; Z79.899 Other long term (current) drug therapy
CPT/HCPCS: 99213

== ENCOUNTER 2023-08-24 09:29 | Oncology outpatient (recurring) (ONCR) | payer OTHER, MEDICAID, SELFPAY ==
[2023-08-24 09:59] LABS: Basophils % 0.4 %; Eosinophils # 0.3 10^3/uL (0.0-0.8); Eosinophils % 2.7 %; Hematocrit 49.9 % (36-47); Lymphocytes # 2.6 10^3/uL (0.8-4.8); Lymphocytes % 27.5 %; Mean Corpuscular HGB Conc 34.9 g/dL (30-55); Mean Corpuscular Hemoglobin 30.8 pg (27-33); Mean Corpuscular Volume 88.3 fl (85-98); Mean Platelet Volume 9.5 fL (7.4-10.4); Monocytes # 0.6 10^3/uL (0.2-0.9); Monocytes % 6.2 %; Neutrophils # 6.01 10^3/uL (1.8-7.7); Nucleated Red Blood Cells % 0 %; Platelet Count 184 10^3/cmm (157-399); Red Blood Count 5.65 10^6/uL (3.85-5.65); Red Cell Distribution Width 13.6 % (12.1-15.1); White Blood Count 9.55 10^3/uL (3.29-11.43)
[2023-08-24 10:18] LABS: Alanine Aminotransferase 19 U/L (0-33); Albumin Level 4.4 g/dL (3.5-5.2); Alkaline Phosphatase 86 U/L (35-105); Anion Gap 15.5 (5-19); Aspartate Amino Transferase 18 U/L (0-32); Blood Urea Nitrogen 11 mg/dL (6-20); Calcium 9.5 mg/dL (8.5-10.5); Carbon Dioxide 29 mmol/L (22-29); Chloride 102 mmol/L (98-107); Globulin 2.8 g/dL (1.3-4.6); Glomerular Filtration Rate 86.2 mL/min (90-130); Glucose 209 mg/dL (65-115); Osmolality Calculated 300 mOsm/kg (285-295); Potassium 4.5 mmol/L (3.5-5.1); Sodium 142 mmol/L (136-145); Total Bilirubin 0.3 mg/dL (0.15-1.2); Total Protein 7.2 g/dL (6.6-8.7)
== END 2023-09-09 23:59 | disposition home or self-care (01) ==
LOC: ONCMED 09:30
PROVIDERS: Nurse Practitioner Family; PCP Nurse Practitioner Family; Visit Provider Nurse Practitioner Family
DX: C50.811 Malignant neoplasm of overlapping sites of right female breast (principal); Z17.0 Estrogen receptor positive status [ER+]; Z79.899 Other long term (current) drug therapy; F17.210 Nicotine dependence, cigarettes, uncomplicated; Z85.3 Personal history of malignant neoplasm of breast; Z90.11 Acquired absence of right breast and nipple; Z78.0 Asymptomatic menopausal state
CPT/HCPCS: 36415; 80053; 85025

== ENCOUNTER 2023-10-10 11:45 | Outpatient (CLI) | payer OTHER, MEDICAID, SELFPAY ==
--- NOTE | 2023-10-10 12:28 | MM_ITS ---
WS: [id number] LEFT 3D TOMOSYNTHESIS DIGITAL MAMMOGRAPHY WITH CAD CLINICAL INFORMATION: HX OF R MASTECTOMY HISTORY: Prior RIGHT mastectomy COMPARISON: 2022 TECHNIQUE: 3 views of the left breast were obtained. FINDINGS: Scattered fibroglandular densities of the left breast. A few incidental punctate calcifications. No suspicious focal mass, asymmetry, calcifications, or architectural distortion. No evidence of jaron gnancy. MM/[place] [id number] IMPRESSION: BI-RADS: 2-Benign FOLLOW UP: 1 Year Follow-up Recommend return to annual diagnostic mammography.
== END 2023-10-10 11:46 | disposition home or self-care (01) ==
LOC: RAD 11:45
PROVIDERS: PCP Nurse Practitioner Family; Visit Provider Nurse Practitioner Family
DX: C50.911 Malignant neoplasm of unspecified site of right female breast (principal); R92.322 Mammographic fibroglandular density, left breast
CPT/HCPCS: 77061; G0279

== ENCOUNTER 2023-11-28 09:07 | Oncology outpatient (recurring) (ONCR) | payer OTHER, MEDICAID, SELFPAY ==
[2023-11-28 10:07] LABS: Basophils # 0.1 10^3/uL (0.0-0.1); Basophils % 0.6 %; Eosinophils # 0.2 10^3/uL (0.0-0.8); Eosinophils % 2.5 %; Lymphocytes # 2.3 10^3/uL (0.8-4.8); Lymphocytes % 25.9 %; Mean Corpuscular HGB Conc 34.5 g/dL (30-55); Mean Corpuscular Hemoglobin 30.2 pg (27-33); Mean Corpuscular Volume 87.7 fl (85-98); Mean Platelet Volume 9.6 fL (7.4-10.4); Monocytes # 0.5 10^3/uL (0.2-0.9); Monocytes % 5.5 %; Neutrophils # 5.88 10^3/uL (1.8-7.7); Neutrophils % 65.2 %; Nucleated Red Blood Cells % 0 %; Platelet Count 184 10^3/cmm (157-399); Red Blood Count 5.59 10^6/uL (3.85-5.65); Red Cell Distribution Width 13.4 % (12.1-15.1); White Blood Count 9.03 10^3/uL (3.29-11.43)
[2023-11-28 10:27] LABS: Alanine Aminotransferase 15 U/L (0-33); Albumin Level 4.2 g/dL (3.5-5.2); Alkaline Phosphatase 86 U/L (35-105); Anion Gap 16.3 (5-19); Aspartate Amino Transferase 14 U/L (0-32); Blood Urea Nitrogen 14 mg/dL (6-20); Calcium 9.4 mg/dL (8.5-10.5); Carbon Dioxide 24 mmol/L (22-29); Chloride 102 mmol/L (98-107); Creatinine Clr Calc Pharmacy 101.5998; Globulin 3.1 g/dL (1.3-4.6); Glucose 280 mg/dL (65-115); Osmolality Calculated 297 mOsm/kg (285-295); Potassium 4.3 mmol/L (3.5-5.1); Sodium 138 mmol/L (136-145); Total Bilirubin 0.4 mg/dL (0.15-1.2); Total Protein 7.3 g/dL (6.6-8.7)
[2023-11-28 15:27] LABS: Vitamin B12 382 pg/mL (232-1245)
[2023-12-04 14:44] LABS: Erythropoietin 9.3 mIU/mL (2.6-18.5)
== END 2023-12-09 23:59 | disposition home or self-care (01) ==
PROVIDERS: Internal Medicine; PCP Nurse Practitioner Family; Visit Provider Nurse Practitioner Family
DX: C50.811 Malignant neoplasm of overlapping sites of right female breast (principal); Z17.0 Estrogen receptor positive status [ER+]; D64.9 Anemia, unspecified; D75.1 Secondary polycythemia
CPT/HCPCS: 36415; 77065; 80053; 82607; 82668; 85025; 86300

== ENCOUNTER 2023-12-27 11:03 | Oncology outpatient (recurring) (ONCR) | payer OTHER, MEDICAID, SELFPAY ==
[2023-12-27 13:07] LABS: Basophils # 0.1 10^3/uL (0.0-0.1); Basophils % 0.5 %; Eosinophils # 0.3 10^3/uL (0.0-0.8); Eosinophils % 2.4 %; Hematocrit 50.3 % (36-47); Lymphocytes # 3.3 10^3/uL (0.8-4.8); Lymphocytes % 28.8 %; Mean Corpuscular HGB Conc 34.2 g/dL (30-55); Mean Corpuscular Hemoglobin 30.2 pg (27-33); Mean Corpuscular Volume 88.4 fl (85-98); Mean Platelet Volume 9.9 fL (7.4-10.4); Monocytes # 0.7 10^3/uL (0.2-0.9); Monocytes % 5.8 %; Neutrophils # 7.04 10^3/uL (1.8-7.7); Neutrophils % 62.3 %; Nucleated Red Blood Cells % 0 %; Platelet Count 199 10^3/cmm (157-399); Red Blood Count 5.69 10^6/uL (3.85-5.65); Red Cell Distribution Width 13.2 % (12.1-15.1); White Blood Count 11.29 10^3/uL (3.29-11.43)
[2023-12-27 13:35] LABS: Alanine Aminotransferase 15 U/L (0-33); Albumin Level 4.4 g/dL (3.5-5.2); Alkaline Phosphatase 97 U/L (35-105); Anion Gap 15.4 (5-19); Aspartate Amino Transferase 14 U/L (0-32); Blood Urea Nitrogen 14 mg/dL (6-20); Calcium 9.2 mg/dL (8.5-10.5); Carbon Dioxide 23 mmol/L (22-29); Chloride 103 mmol/L (98-107); Globulin 3.1 g/dL (1.3-4.6); Glucose 155 mg/dL (65-115); Osmolality Calculated 288 mOsm/kg (285-295); Potassium 4.4 mmol/L (3.5-5.1); Sodium 137 mmol/L (136-145); Total Bilirubin 0.4 mg/dL (0.15-1.2); Total Protein 7.5 g/dL (6.6-8.7)
== END 2024-01-09 23:59 | disposition home or self-care (01) ==
PROVIDERS: Internal Medicine; PCP Nurse Practitioner Family; Visit Provider Nurse Practitioner Family
DX: C50.811 Malignant neoplasm of overlapping sites of right female breast (principal); Z17.0 Estrogen receptor positive status [ER+]; Z79.899 Other long term (current) drug therapy
CPT/HCPCS: 36415; 80053; 85025; 86300

== ENCOUNTER 2023-12-27 11:10 | Outpatient (CLI) | payer OTHER, MEDICAID, SELFPAY ==
--- NOTE | 2023-12-27 11:45 | MR_ITS ---
WS: [id number] MRI RIGHT SHOULDER HISTORY: unable to raise arm COMPARISON: None available. TECHNIQUE: Multiplanar sequences of the shoulder joint are submitted. The study is significantly compromised by motion artifact. Nearly nondiagnostic exam. At least mild AC joint arthropathy. Fluid along the AC articulation. There is increased signal in the distal supraspinatus tendon. There is at least tendinopathy. I suspect there is probably a tear also but cannot confirm due to the amount of motion. Mild subacromial impingement. Normal position of the biceps tendon. Mild atrophy of the supraspinatus muscle. No edema. No fractures. Poorly visualized l abrum. MR/MR shoulder RT wo con* [id number] IMPRESSION: 1. This study is significantly compromised by motion artifact on most sequence s. Nearly nondiagnostic exam. 2. Mild AC joint arthropathy. 3. Mild subacromial impingement. 4. Signal abnormality in the supraspinatus tendon. Tendinopathy and fraying al sharla the surfaces of the tendon. Suspect there is probably also an underlying te ar cannot confirm due to the amount of motion. 5. Mild supraspinatus muscle atrophy.
== END 2023-12-27 11:11 | disposition home or self-care (01) ==
PROVIDERS: PCP Nurse Practitioner Family; Visit Provider Nurse Practitioner Family
DX: M19.011 Primary osteoarthritis, right shoulder (principal); M25.811 Other specified joint disorders, right shoulder; M67.813 Other specified disorders of tendon, right shoulder
CPT/HCPCS: 73221

== ENCOUNTER → 2024-01-14 08:29 | Outpatient (BNVA) | payer OTHER, MEDICAID, SELFPAY | PROVIDERS: PCP Nurse Practitioner Family; Visit Provider Specialist | DX: M25.511 Pain in right shoulder (principal); M75.01 Adhesive capsulitis of right shoulder | CPT/HCPCS: 73030 ==

== ENCOUNTER 2024-01-31 12:17 | Outpatient (RCR) | payer OTHER, MEDICAID, SELFPAY | END 2024-02-09 18:00 | disposition home or self-care (01) | LOC: SPT 12:17 | PROVIDERS: PCP Nurse Practitioner Family; Visit Provider Specialist | DX: M25.511 Pain in right shoulder (principal) | CPT/HCPCS: 97110; 97161 ==

== ENCOUNTER 2024-03-07 07:58 | Oncology outpatient (recurring) (ONCR) | payer OTHER, MEDICAID, SELFPAY ==
[2024-03-07 08:38] LABS: Basophils # 0.1 10^3/uL (0.0-0.1); Basophils % 0.5 %; Eosinophils # 0.3 10^3/uL (0.0-0.8); Eosinophils % 2.3 %; Hematocrit 52.7 % (36-47); Lymphocytes # 2.8 10^3/uL (0.8-4.8); Lymphocytes % 25.3 %; Mean Corpuscular HGB Conc 34.2 g/dL (30-55); Mean Corpuscular Hemoglobin 30.3 pg (27-33); Mean Corpuscular Volume 88.6 fl (85-98); Mean Platelet Volume 9.5 fL (7.4-10.4); Monocytes # 0.7 10^3/uL (0.2-0.9); Monocytes % 5.8 %; Neutrophils # 7.31 10^3/uL (1.8-7.7); Neutrophils % 65.6 %; Nucleated Red Blood Cells % 0 %; Platelet Count 192 10^3/cmm (157-399); Red Blood Count 5.95 10^6/uL (3.85-5.65); Red Cell Distribution Width 13.3 % (12.1-15.1); White Blood Count 11.16 10^3/uL (3.29-11.43)
[2024-03-07 09:03] LABS: Alanine Aminotransferase 17 U/L (0-33); Albumin Level 4.4 g/dL (3.5-5.2); Alkaline Phosphatase 90 U/L (35-105); Anion Gap 13.9 (5-19); Aspartate Amino Transferase 15 U/L (0-32); Blood Urea Nitrogen 13 mg/dL (6-20); CA 15-3 28.6 U/mL (0-25); Carbon Dioxide 28 mmol/L (22-29); Chloride 103 mmol/L (98-107); Glucose 161 mg/dL (65-115); Osmolality Calculated 294 mOsm/kg (285-295); Potassium 4.9 mmol/L (3.5-5.1); Sodium 140 mmol/L (136-145); Total Bilirubin 0.4 mg/dL (0.15-1.2); Total Protein 7.4 g/dL (6.6-8.7)
== END 2024-03-10 23:59 | disposition home or self-care (01) ==
PROVIDERS: Nurse Practitioner Family; PCP Nurse Practitioner Family; Visit Provider Nurse Practitioner Family
DX: C50.911 Malignant neoplasm of unspecified site of right female breast (principal)
CPT/HCPCS: 36415; 80053; 85025; 86300

== ENCOUNTER 2024-04-21 14:23 | Oncology outpatient (recurring) (ONCR) | payer OTHER, MEDICAID, SELFPAY ==
[2024-04-21 14:49] LABS: Basophils # 0.1 10^3/uL (0.0-0.1); Basophils % 0.5 %; Eosinophils # 0.2 10^3/uL (0.0-0.8); Eosinophils % 1.5 %; Hematocrit 50.9 % (36-47); Lymphocytes # 3.6 10^3/uL (0.8-4.8); Lymphocytes % 31.1 %; Mean Corpuscular HGB Conc 34.2 g/dL (30-55); Mean Corpuscular Hemoglobin 29.9 pg (27-33); Mean Corpuscular Volume 87.6 fl (85-98); Mean Platelet Volume 9.6 fL (7.4-10.4); Monocytes # 0.7 10^3/uL (0.2-0.9); Monocytes % 6.1 %; Neutrophils # 6.98 10^3/uL (1.8-7.7); Neutrophils % 60.6 %; Nucleated Red Blood Cells % 0 %; Platelet Count 198 10^3/cmm (157-399); Red Blood Count 5.81 10^6/uL (3.85-5.65); Red Cell Distribution Width 13.8 % (12.1-15.1); White Blood Count 11.51 10^3/uL (3.29-11.43)
[2024-04-21 15:08] LABS: Alanine Aminotransferase 16 U/L (0-33); Albumin Level 4.4 g/dL (3.5-5.2); Alkaline Phosphatase 77 U/L (35-105); Blood Urea Nitrogen 5 mg/dL (6-20); Calcium 9.1 mg/dL (8.5-10.5); Carbon Dioxide 26 mmol/L (22-29); Chloride 101 mmol/L (98-107); Glomerular Filtration Rate 127.2 mL/min (90-130); Glucose 211 mg/dL (65-115); Osmolality Calculated 288 mOsm/kg (285-295); Sodium 137 mmol/L (136-145); Total Bilirubin 0.4 mg/dL (0.15-1.2); Total Protein 7.4 g/dL (6.6-8.7)
[2024-04-21 15:16] LABS: Anion Gap 14.3 (5-19); Aspartate Amino Transferase 20 U/L (0-32); Lactate Dehydrogenase 186 U/L (135-214); Potassium 4.3 mmol/L (3.5-5.1)
[2024-04-25 14:32] LABS: Erythropoietin 14.4 mIU/mL (2.6-18.5)
[2024-04-29 19:45] LABS: JAK2 V617 Clinical Indication polycythemia; JAK2 V617 Mutation NOT DETECTED (NOT DETECTED); JAK2 V617 Specimen Source blood
== END 2024-05-10 23:59 | disposition home or self-care (01) ==
LOC: ONCMED 14:24
PROVIDERS: Nurse Practitioner Family; PCP Nurse Practitioner Family; Visit Provider Nurse Practitioner Family
DX: D75.1 Secondary polycythemia
CPT/HCPCS: 36415; 80053; 81270; 82668; 83615; 85025

== ENCOUNTER 2024-11-13 14:30 | Oncology outpatient (recurring) (ONCR) | payer OTHER, MEDICAID, SELFPAY ==
[2024-11-13 14:51] LABS: Basophils # 0.1 10^3/uL (0.0-0.1); Basophils % 0.5 %; Eosinophils # 0.3 10^3/uL (0.0-0.8); Eosinophils % 2.1 %; Hematocrit 52.4 % (36-47); Lymphocytes # 3.9 10^3/uL (0.8-4.8); Lymphocytes % 32.7 %; Mean Corpuscular HGB Conc 34.5 g/dL (30-55); Mean Corpuscular Hemoglobin 30.5 pg (27-33); Mean Corpuscular Volume 88.2 fl (85-98); Mean Platelet Volume 9.6 fL (7.4-10.4); Monocytes # 0.7 10^3/uL (0.2-0.9); Monocytes % 5.4 %; Neutrophils # 7.11 10^3/uL (1.8-7.7); Nucleated Red Blood Cells % 0 %; Platelet Count 212 10^3/cmm (157-399); Red Blood Count 5.94 10^6/uL (3.85-5.65); Red Cell Distribution Width 13.5 % (12.1-15.1); White Blood Count 12.05 10^3/uL (3.29-11.43)
[2024-11-13 15:20] LABS: Alanine Aminotransferase 28 U/L (0-33); Albumin Level 4.5 g/dL (3.5-5.2); Alkaline Phosphatase 92 U/L (35-105); Anion Gap 16.8 (5-19); Aspartate Amino Transferase 26 U/L (0-32); Blood Urea Nitrogen 9 mg/dL (6-20); CA 15-3 30.5 U/mL (0-25); Calcium 9.5 mg/dL (8.5-10.5); Carbon Dioxide 26 mmol/L (22-29); Chloride 103 mmol/L (98-107); Globulin 3.2 g/dL (1.3-4.6); Glomerular Filtration Rate 102.7 mL/min (90-130); Glucose 228 mg/dL (65-115); Osmolality Calculated 298 mOsm/kg (285-295); Potassium 4.8 mmol/L (3.5-5.1); Sodium 141 mmol/L (136-145); Total Bilirubin 0.4 mg/dL (0.15-1.2); Total Protein 7.7 g/dL (6.6-8.7)
== END 2024-12-08 23:59 | disposition home or self-care (01) ==
PROVIDERS: Nurse Practitioner Family; PCP Nurse Practitioner Family; Visit Provider Nurse Practitioner Family
DX: C50.911 Malignant neoplasm of unspecified site of right female breast (principal)
CPT/HCPCS: 36415; 80053; 85025; 86300

== ENCOUNTER 2025-02-12 10:57 | Oncology outpatient (recurring) (ONCR) | payer OTHER, MEDICAID, SELFPAY ==
[2025-02-12 11:47] LABS: Hematocrit 51.4 % (36-47); Hemoglobin 17.60 g/dL (11.27-16.99); Mean Corpuscular HGB Conc 34.2 g/dL (30-55); Mean Corpuscular Hemoglobin 30.7 pg (27-33); Mean Corpuscular Volume 89.7 fl (85-98); Nucleated Red Blood Cells % 0 %; Platelet Count 190 10^3/cmm (157-399); Red Blood Count 5.73 10^6/uL (3.85-5.65); White Blood Count 11.00 10^3/uL (3.29-11.43)
[2025-02-12 13:33] LABS: Alanine Aminotransferase 22 U/L (0-33); Albumin Level 4.6 g/dL (3.5-5.2); Alkaline Phosphatase 83 U/L (35-105); Anion Gap 18.6 (5-19); Aspartate Amino Transferase 22 U/L (0-32); Blood Urea Nitrogen 11 mg/dL (6-20); Calcium 9.9 mg/dL (8.5-10.5); Carbon Dioxide 24 mmol/L (22-29); Chloride 102 mmol/L (98-107); Creatinine Clr Calc Pharmacy 84.7818; Globulin 3.3 g/dL (1.3-4.6); Glucose 116 mg/dL (65-115); Osmolality Calculated 290 mOsm/kg (285-295); Potassium 4.6 mmol/L (3.5-5.1); Sodium 140 mmol/L (136-145); Total Protein 7.9 g/dL (6.6-8.7)
== END 2025-03-10 23:59 | disposition home or self-care (01) ==
PROVIDERS: Internal Medicine; PCP Nurse Practitioner Family; Visit Provider Nurse Practitioner Family
DX: C50.911 Malignant neoplasm of unspecified site of right female breast (principal)
CPT/HCPCS: 36415; 80053; 83615; 85025

== ENCOUNTER → 2025-03-02 08:53 | Outpatient (BNVA) | payer OTHER, MEDICAID, SELFPAY | PROVIDERS: PCP Nurse Practitioner Family; Visit Provider Specialist | DX: G56.01 Carpal tunnel syndrome, right upper limb (principal); M65.331 Trigger finger, right middle finger; M65.311 Trigger thumb, right thumb | CPT/HCPCS: 73130 ==